=== PATIENT | female | born 1975 | race Caucasian/White ===

== ENCOUNTER 2019-03-13 09:03 | Emergency (ER) | payer MEDICARE, MEDICAID ==
--- NOTE | 2019-03-13 09:39 | EDM.PDOC ---
<Carol Puente - Last Filed: 03/13/19 10:06> ED HPI GENERAL MEDICAL PROBLEM - General Chief Complaint: Neurological Problem Stated Complaint: DIZZY AND FALLING Time Seen by Provider: 03/13/19 09:32 Source of Information: Reports: Other ([facility] staff) History Limitations: Reports: Other - History of Present Illness INITIAL COMMENTS - FREE TEXT/NARRATIVE: 44 year old female who is a resident of [facility]. Pt was brought in by staff due to having two falls yesterday and running into a wall today. Staff report that the patient was at a restaurant yesterday and stood up from the mcdonald and caught her foot and tripped falling backwards onto her butt and then hit her head on the floor. Fell a second time last evening when she got up from the toilet and stumbled forward and hit her forehead on the wall and then slid to the ground. Staff denies any seizure like activity with or after the falls. The patient was immediately able to get up and started walking again. Today, the patient got up from breakfast and was walking back to her room when she walked right into a wall. Staff report that the patient complains of feeling "dizzy" today. Gait is usually slightly unsteady, but does not have a history of falling per [facility] staff. - Related Data Allergies Allergy/AdvReac Type Severity Reaction Status Date / Time fluoride. Allergy Other Uncoded 03/13/19 09:22 Home Meds: Home Meds Alendronate Sodium 70 mg PO WEEKLY 03/13/19 [History] Calcium Carbonate [Oyster Shell Calcium] 500 mg PO TID 03/13/19 [History] Cholecalciferol (Vitamin D3) [Vitamin D3] 1,000 unit PO DAILY 03/13/19 [History] Ciprofloxacin [Ciloxan 0.3% Ophth Soln] 1 drop EYELF DAILY 03/13/19 [History] Cyanocobalamin (Vitamin B12) [Vitamin B12] 1,000 mcg PO DAILY 03/13/19 [History] Diltiazem [Dilacor XR] 240 mg PO DAILY 03/13/19 [History] Lisinopril 10 mg PO DAILY 03/13/19 [History] Montelukast [Singulair] 10 mg PO DAILY 03/13/19 [History] Multivitamins with Iron [Child Chew Iron] 1 tab PO DAILY 03/13/19 [History] Ondansetron [Zofran] 4 mg PO DAILY PRN 03/13/19 [History] Petrolatum,White [Petrolatum] 30 gm MC DAILY 03/13/19 [History] Potassium Chloride 20 meq PO DAILY 03/13/19 [History] Promethazine HCl/Codeine [Prometh-Codein 6.25-10 mg/5 ml] 5 ml PO Q8HR PRN 03/13 [History] Psyllium Husk (With Sugar) [Fiber Therapy Powder] 368 gm PO TID PRN 03/13/19 [ History] Ranitidine [Zantac] 150 mg PO DAILY 03/13/19 [History] Simethicone [Gas Relief] 1 tab PO TID PRN 03/13/19 [History] Simvastatin 5 mg PO DAILY 03/13/19 [History] Ubidecarenone [Co Q-10] 100 mg PO DAILY 03/13/19 [History] carBAMazepine [Carbamazepine] 200 mg PO BID 03/13/19 [History] hydroCHLOROthiazide [Hydrochlorothiazide] 25 mg PO DAILY 03/13/19 [History] traZODone HCl [Trazodone HCl] 50 mg PO BEDTIME #30 tablet 03/13/19 [Rx] traZODone HCl [Trazodone HCl] 100 mg PO DAILY 03/13/19 [History] ED ROS GENERAL - Review of Systems Constitutional: Reports: No Symptoms HEENT: Reports: No Symptoms Respiratory: Reports: No Symptoms Cardiovascular: Reports: No Symptoms Endocrine: Reports: No Symptoms GI/Abdominal: Reports: No Symptoms (pt has a history of constipation, but not currently an issue) : Reports: No Symptoms (pt voids per self had not offered any complaints to [facility] staff) Musculoskeletal: Reports: No Symptoms Skin: Reports: No Symptoms Neurological: Reports: Dizziness, Other (fell x 2 yesterday) Hematologic/Lymphatic: Reports: No Symptoms Immunologic: Reports: No Symptoms ED EXAM, NEURO - Physical Exam Exam Limited By: Other (cognitive disfunction-pt is a resident of 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), Abnormal Pupil ( prosthetic eye) Ears: Normal External Exam, Normal TMs Nose: Normal Inspection, No Blood Throat/Mouth: Normal Inspection, Normal Lips, Normal Oropharynx Head Exam: Atraumatic, Normocephalic Neck: Normal Inspection, Supple, Non-Tender Respiratory/Chest: No Respiratory Distress, Lungs Clear, Normal Breath Sounds, Chest Non-Tender Cardiovascular: Normal Peripheral Pulses, Regular Rate, Rhythm, No Edema, No Murmur GI/Abdominal: Normal Bowel Sounds, Soft, Non-Tender, No Distention (Female) Exam: Deferred Rectal (Female) Exam: Deferred Neurological: Alert, No Motor/Sensory Deficits Back Exam: Normal Inspection Extremities: Normal Inspection, Normal Range of Motion, No Pedal Edema Psychiatric: Anxious Skin Exam: Warm, Dry, Intact, Normal Color, No Rash Course - Vital Signs Last Recorded V/S: Last Vital Signs Temp 98.0 F 03/13/19 09:17 Pulse 86 03/13/19 09:17 Resp 16 03/13/19 09:17 BP 138/82 03/13/19 09:17 Pulse Ox 100 03/13/19 09:17 - Orders/Labs/Meds Labs: Laboratory Tests 03/13/19 03/13/19 Range/Units 10:44 10:44 WBC 6.63 (3.98-10.04) K/mm3 RBC 4.66 (3.98-5.22) M/mm3 Hgb 14.2 (11.2-15.7) gm/dl Hct 42.2 (34.1-44.9) % MCV 90.6 (79.4-94.8) fl MCH 30.5 (25.6-32.2) pg MCHC 33.6 (32.2-35.5) g/dl RDW Std Deviation 41.3 (36.4-46.3) fL Plt Count 363 (182-369) K/mm3 MPV 8.8 L (9.4-12.3) fl Neut % (Auto) 61.9 (34.0-71.1) % Lymph % (Auto) 18.4 L (19.3-51.7) % Owen % (Auto) 17.2 H (4.7-12.5) % Eos % (Auto) 0.9 (0.7-5.8) Baso % (Auto) 0.2 (0.1-1.2) % Neut # (Auto) 4.11 (1.56-6.13) K/mm3 Lymph # (Auto) 1.22 (1.18-3.74) K/mm3 Owen # (Auto) 1.14 H (0.24-0.36) K/mm3 Eos # (Auto) 0.06 (0.04-0.36) K/mm3 Baso # (Auto) 0.01 (0.01-0.08) K/mm3 Manual Slide Review Abnormal smear Sodium 136 (136-145) mEq/L Potassium 3.7 (3.5-5.1) mEq/L Chloride 101 (98-107) mEq/L Carbon Dioxide 26 (21-32) mEq/L Anion Gap 12.7 (5-15) BUN 12 (7-18) mg/dL Creatinine 0.8 (0.55-1.02) mg/dL Est Cr Clr Drug Dosing 63.79 mL/min Estimated GFR (MDRD) > 60 (>60) mL/min BUN/Creatinine Ratio 15.0 (14-18) Glucose 84 (74-106) mg/dL Calcium 9.6 (8.5-10.1) mg/dL Total Bilirubin 0.2 (0.2-1.0) mg/dL AST 21 (15-37) U/L ALT 41 (14-59) U/L Alkaline Phosphatase 79 (46-116) U/L Total Protein 7.6 (6.4-8.2) g/dl Albumin 3.9 (3.4-5.0) g/dl Globulin 3.7 gm/dL Albumin/Globulin Ratio 1.1 (1-2) Departure - Departure Disposition: Home, Self-Care 01 Clinical Impression: Dizziness, Fall - Discharge Information Prescriptions: traZODone HCl [Trazodone HCl] 50 mg PO BEDTIME #30 tablet Instructions: Dizziness, [id number] Referrals: Yaquelin Matute MD [Primary Care Provider] - Forms: ED Department Discharge Additional Instructions: Head CT was normal today, labs also were all relatively normal. It seems reasonable to cut back on dosage of her trazodone as discussed. Decreased dosage to 50 mg at at bedtime rather than the previously prescribed 100 mg. Follow-up with her regular medical provider in about 4-5 days, call clinic for appointment. Return to ED as needed if symptoms worsening in any way. <Ravindra Vinson - Last Filed: 03/17/19 08:41> ED ROS GENERAL - Review of Systems Review Of Systems: See Below ED EXAM, NEURO - Physical Exam Exam: See Below Course - Re-Assessments/Exams Free Text/Narrative Re-Assessment/Exam: 03/17/19 08:37 Initial hx and exam was done by Carol DANIELS student. I have also examined patient and interviewed [facility] staff present at time of exam. Labs came back relatively normal. She is noted to be taking 100 mg trazadone at hs presumably for sleep. That is generous dosage for her at only 48 kg. Have discussed cutting her dose down to 50 mg. Staff is agreeable with that plan. Departure - Departure Time of Disposition: 11:55 Condition: Fair
[2019-03-13] MEDS ORDERED: LORazepam 2 MG/ML SDV IVPUSH ONE (10:25)
--- NOTE | 2019-03-13 10:58 | CT ---
Head CT Technique: Multiple axial sections through the brain were obtained. Intravenous contrast was not utilized. Comparison: No prior intracranial imaging. Findings: Ventricles along with basal cisterns and sulci over the convexities are moderately prominent. Mild diminished density is noted within the periventricular white matter likely representing small vessel ischemic demyelination change. No evidence of intracranial hemorrhage. No midline shift or mass effect is seen. Bone window settings were reviewed which show no acute calvarial abnormality. Visualized mastoid sinuses show nothing acute. Visualized paranasal sinuses show nothing acute. Impression: 1. Senescent change as noted above which is more prominent than usually expected in a patient of this age. This can be seen with old trauma as well as drug abuse and some types of prescription medicines. 2. Nothing acute is appreciated on noncontrast head CT exam. Diagnostic code #2
== END 2019-03-13 12:14 | disposition home or self-care (01) ==
LOC: JD.ED 09:03
DX: R42 Dizziness and giddiness (principal); Z91.09 Other allergy status, other than to drugs and biological substances; W01.198A Fall on same level from slipping, tripping and stumbling with subsequent striking against other object, initial encounter; Y92.89 Other specified places as the place of occurrence of the external cause
CPT/HCPCS: 36415; 70450; 70450-26; 80053; 85025; 99283; 99284-25

== ENCOUNTER 2024-09-30 12:15 | Inpatient (IN) | payer MEDICARE, MEDICAID ==
[2024-09-30] MEDS ORDERED: Ondansetron 4 MG Tab.DIS PO PRN (12:23)
[2024-09-30] MEDS: Ampicillin/Sulbactam Na 3 GM in Sodium Chloride 0.9% 100 ML IV SCH (12:44)
[2024-09-30] MEDS ORDERED: Calcium Carbonate 500 MG Tab.Chew PO PRN (14:46)
[2024-09-30] MEDS ORDERED: Simethicone 80 MG Tab.Chew PO PRN (14:46)
[2024-09-30] MEDS ORDERED: guaiFENesin 100 MG/5 ML Soln 10 ML UD Cup PO PRN (15:04)
[2024-09-30] MEDS: carBAMazepine 100 MG Tab.Chew PO SCH (18:19)
[2024-09-30] MEDS: traZODone 50 MG Tab PO SCH (20:59)
[2024-09-30] MEDS: Pravastatin 20 MG Tab PO SCH (20:59)
[2024-09-30] MEDS: Famotidine 20 MG Tab PO SCH (20:59)
[2024-10-01] MEDS: Montelukast 10 MG Tab PO SCH (08:43)
[2024-10-01] MEDS: Cholecalciferol (Vitamin D3) 25 MCG Tab PO SCH (08:43)
[2024-10-01] MEDS: carBAMazepine 100 MG Tab.Chew PO SCH (08:43)
[2024-10-01] MEDS: CIPROFLOXACIN EYELF SCH (08:44)
[2024-10-01] MEDS: Enoxaparin 40 MG/0.4 ML Syringe SUBCUT SCH (09:57)
[2024-10-02] MEDS: FERROUS SULFATE 220 MG/5 ML PO SCH (11:58)
[2024-10-02] MEDS: Acetaminophen 325 MG Tab PO PRN (20:52)
[2024-10-05 08:47] LABS: HEMATOCRIT 39.2 % (37.0-47.0); HEMOGLOBIN 12.4 gm/dl (12.0-16.0); MEAN CORPUSCULAR HEMOGLOBIN 28.8 pg (28.0-32.0); MEAN CORPUSCULAR HGB CONC 31.6 g/dl (32.0-36.0); MEAN CORPUSCULAR VOLUME 91.2 fl (83.0-99.0); MEAN PLATELET VOLUME 9.1 fl (9.4-12.3); WHITE BLOOD CELL COUNT,WBC 8.65 K/mm3 (3.9-11.3)
[2024-10-05 08:53] LABS: PLATELET COUNT,PLT 408 K/mm3 (150-400)
[2024-10-05 09:23] LABS: A/G RATIO 0.7 (1-2); ANION GAP 11.6 (5-15); BILIRUBIN TOTAL 0.2 mg/dL (0.2-1.0); BUN/CREATININE RATIO 17.1 (14-18); C-REACTIVE PROTEIN 0.27 mg/dL (<0.30); CALCIUM 9.3 mg/dL (8.5-10.1); CREATININE 0.7 mg/dL (0.55-1.02); EST CRCL DRUG DOSING (CG) 61.48 mL/min; POTASSIUM,K 3.6 mEq/L (3.5-5.1); PROTEIN TOTAL,TP 7.5 g/dl (6.4-8.2)
[2024-10-06] MEDS: LORazepam 2 MG/ML SDV IVPUSH PRN (10:19)
[2024-10-06] MEDS: Acetaminophen 325 MG Tab PO SCH (18:02)
[2024-10-12 09:06] LABS: HEMATOCRIT 35.8 % (37.0-47.0); HEMOGLOBIN 11.7 gm/dl (12.0-16.0); MEAN CORPUSCULAR HEMOGLOBIN 29.1 pg (28.0-32.0); MEAN CORPUSCULAR HGB CONC 32.7 g/dl (32.0-36.0); MEAN CORPUSCULAR VOLUME 89.1 fl (83.0-99.0); MEAN PLATELET VOLUME 9.2 fl (9.4-12.3); PLATELET COUNT,PLT 367 K/mm3 (150-400); RED BLOOD CELL COUNT 4.02 M/mm3 (4.10-5.30); WHITE BLOOD CELL COUNT,WBC 8.27 K/mm3 (3.9-11.3)
[2024-10-12 09:32] LABS: A/G RATIO 0.8 (1-2); ANION GAP 11.9 (5-15); BILIRUBIN TOTAL 0.2 mg/dL (0.2-1.0); BUN/CREATININE RATIO 18.3 (14-18); C-REACTIVE PROTEIN 0.35 mg/dL (<0.30); CALCIUM 8.9 mg/dL (8.5-10.1); CREATININE 0.6 mg/dL (0.55-1.02); EST CRCL DRUG DOSING (CG) 72.61 mL/min; POTASSIUM,K 3.9 mEq/L (3.5-5.1); PROTEIN TOTAL,TP 6.9 g/dl (6.4-8.2)
[2024-10-14] MEDS: Sennosides 8.6 MG Tab PO PRN (11:40)
[2024-10-17] MEDS: Polyethylene Glycol 3350 Powder 17 GM Packet PO SCH (13:13)
[2024-10-19 05:25] LABS: BASOPHILS ABSOLUTE AUTO 0.1 K/mm3 (0.0-0.2); BASOPHILS PERCENT AUTO 0.6 % (0.0-1.0); EOSINOPHILS ABSOLUTE AUTO 0.4 K/mm3 (0.0-0.4); EOSINOPHILS PERCENT AUTO 4.2 % (0.0-6.0); HEMOGLOBIN 10.9 gm/dl (12.0-16.0); IMMATURE GRAN PERCENT AUTO 2.3 % (0.0-0.4); LYMPHOCYTES ABSOLUTE AUTO 1.9 K/mm3 (1.0-4.8); LYMPHOCYTES PERCENT AUTO 21.4 % (24.0-44.0); MEAN CORPUSCULAR VOLUME 90.9 fl (83.0-99.0); MEAN PLATELET VOLUME 9.2 fl (9.4-12.3); MONOCYTES ABSOLUTE AUTO 1.1 K/mm3 (0.0-0.8); MONOCYTES PERCENT AUTO 12.2 % (0.0-8.0); NEUTROPHILS ABSOLUTE AUTO 5.2 K/mm3 (1.8-7.7); NEUTROPHILS PERCENT AUTO 59.3 % (41.0-71.0); PLATELET COUNT,PLT 304 K/mm3 (150-400); RED BLOOD CELL COUNT 3.63 M/mm3 (4.10-5.30); WHITE BLOOD CELL COUNT,WBC 8.77 K/mm3 (3.9-11.3)
[2024-10-19 05:45] LABS: A/G RATIO 0.7 (1-2); ALBUMIN 2.6 g/dl (3.4-5.0); BILIRUBIN TOTAL 0.1 mg/dL (0.2-1.0); C-REACTIVE PROTEIN 0.18 mg/dL (<0.30); CALCIUM 8.8 mg/dL (8.5-10.1); CREATININE 0.7 mg/dL (0.55-1.02); EST CRCL DRUG DOSING (CG) 61.21 mL/min; PROTEIN TOTAL,TP 6.2 g/dl (6.4-8.2)
[2024-10-19] MEDS ORDERED: Polyethylene Glycol 3350 Powder 17 GM Packet PO PRN (12:07)
[2024-10-23] MEDS ORDERED: Propofol 200 MG/20 ML SDV ONE (06:00)
[2024-10-23] MEDS: Gadobenate Dimeglumine 529 MG/ML 15 ML SDV IVPUSH ONE (06:52)
[2024-10-23] MEDS: Sodium Chloride 0.9% 10 ML Syringe FLUSH SCH (06:52)
[2024-10-23] MEDS ORDERED: Ondansetron 4 MG/2 ML SDV IVPUSH PRN (07:24)
[2024-10-26 05:45] LABS: BASOPHILS PERCENT AUTO 0.4 % (0.0-1.0); EOSINOPHILS ABSOLUTE AUTO 0.3 K/mm3 (0.0-0.4); EOSINOPHILS PERCENT AUTO 3.8 % (0.0-6.0); HEMATOCRIT 34.7 % (37.0-47.0); HEMOGLOBIN 11.2 gm/dl (12.0-16.0); IMMATURE GRAN ABSOLUTE AUTO 0.17 K/mm3 (0.00-0.05); IMMATURE GRAN PERCENT AUTO 1.9 % (0.0-0.4); LYMPHOCYTES ABSOLUTE AUTO 1.6 K/mm3 (1.0-4.8); MEAN CORPUSCULAR HEMOGLOBIN 29.9 pg (28.0-32.0); MEAN CORPUSCULAR HGB CONC 32.3 g/dl (32.0-36.0); MEAN CORPUSCULAR VOLUME 92.8 fl (83.0-99.0); MEAN PLATELET VOLUME 9.7 fl (9.4-12.3); MONOCYTES ABSOLUTE AUTO 0.9 K/mm3 (0.0-0.8); MONOCYTES PERCENT AUTO 10.5 % (0.0-8.0); NEUTROPHILS ABSOLUTE AUTO 5.8 K/mm3 (1.8-7.7); NEUTROPHILS PERCENT AUTO 65.4 % (41.0-71.0); PLATELET COUNT,PLT 330 K/mm3 (150-400); RED BLOOD CELL COUNT 3.74 M/mm3 (4.10-5.30); WHITE BLOOD CELL COUNT,WBC 8.91 K/mm3 (3.9-11.3)
[2024-10-26 05:53] LABS: A/G RATIO 0.7 (1-2); ALBUMIN 2.6 g/dl (3.4-5.0); ANION GAP 11.8 (5-15); BILIRUBIN TOTAL 0.2 mg/dL (0.2-1.0); BUN/CREATININE RATIO 21.4 (14-18); C-REACTIVE PROTEIN 0.26 mg/dL (<0.30); CALCIUM 8.8 mg/dL (8.5-10.1); CREATININE 0.7 mg/dL (0.55-1.02); EST CRCL DRUG DOSING (CG) 60.86 mL/min; POTASSIUM,K 3.8 mEq/L (3.5-5.1); PROTEIN TOTAL,TP 6.2 g/dl (6.4-8.2)
[2024-10-26] MEDS: LORazepam 2 MG/ML SDV IVPUSH ONE (08:17)
[2024-10-27] MEDS: Ertapenem 1 GM in Sodium Chloride 0.9% 50 ML IV SCH (11:54)
[2024-10-28] MEDS: Acetaminophen 325 MG Tab PO SCH (21:04)
[2024-10-29] MEDS: Acetaminophen 325 MG Tab PO SCH (20:24)
[2024-11-02 05:36] LABS: BASOPHILS ABSOLUTE AUTO 0.1 K/mm3 (0.0-0.2); BASOPHILS PERCENT AUTO 0.8 % (0.0-1.0); EOSINOPHILS ABSOLUTE AUTO 0.5 K/mm3 (0.0-0.4); EOSINOPHILS PERCENT AUTO 7.4 % (0.0-6.0); HEMATOCRIT 36.6 % (37.0-47.0); IMMATURE GRAN ABSOLUTE AUTO 0.19 K/mm3 (0.00-0.05); IMMATURE GRAN PERCENT AUTO 2.6 % (0.0-0.4); LYMPHOCYTES ABSOLUTE AUTO 1.8 K/mm3 (1.0-4.8); LYMPHOCYTES PERCENT AUTO 24.5 % (24.0-44.0); MEAN CORPUSCULAR HEMOGLOBIN 30.2 pg (28.0-32.0); MEAN CORPUSCULAR HGB CONC 32.8 g/dl (32.0-36.0); MEAN PLATELET VOLUME 9.2 fl (9.4-12.3); MONOCYTES PERCENT AUTO 14.1 % (0.0-8.0); NEUTROPHILS ABSOLUTE AUTO 3.7 K/mm3 (1.8-7.7); NEUTROPHILS PERCENT AUTO 50.6 % (41.0-71.0); PLATELET COUNT,PLT 341 K/mm3 (150-400); RED BLOOD CELL COUNT 3.98 M/mm3 (4.10-5.30); WHITE BLOOD CELL COUNT,WBC 7.31 K/mm3 (3.9-11.3)
[2024-11-02 06:35] LABS: A/G RATIO 0.8 (1-2); ALBUMIN 2.8 g/dl (3.4-5.0); BILIRUBIN TOTAL 0.2 mg/dL (0.2-1.0); BUN/CREATININE RATIO 33.3 (14-18); C-REACTIVE PROTEIN 0.2 mg/dL (<0.30); CALCIUM 8.9 mg/dL (8.5-10.1); CREATININE 0.6 mg/dL (0.55-1.02); EST CRCL DRUG DOSING (CG) 72.29 mL/min; PROTEIN TOTAL,TP 6.5 g/dl (6.4-8.2)
== END 2024-11-03 12:55 | disposition other institution (70) | DRG 540 ==
LOC: UNDOADMIN 12:15 → JD.MS 12:15 → UNDOADMIN 12:16 → JD.MS 12:16
PROVIDERS: ADMIT Internal Medicine; ATTEND Student in an Organized Health Care Education/Training Program
DX: M86.08 Acute hematogenous osteomyelitis, other sites (principal); E46 Unspecified protein-calorie malnutrition; E87.1 Hypo-osmolality and hyponatremia; Z68.1 Body mass index [BMI] 19.9 or less, adult; H54.7 Unspecified visual loss; E78.00 Pure hypercholesterolemia, unspecified; I10 Essential (primary) hypertension; J45.909 Unspecified asthma, uncomplicated; K21.9 Gastro-esophageal reflux disease without esophagitis; M81.0 Age-related osteoporosis without current pathological fracture; R73.03 Prediabetes; D64.9 Anemia, unspecified; F41.9 Anxiety disorder, unspecified; F32.A Depression, unspecified; K59.09 Other constipation; R62.50 Unspecified lack of expected normal physiological development in childhood; D50.9 Iron deficiency anemia, unspecified; K08.9 Disorder of teeth and supporting structures, unspecified; Z86.16 Personal history of COVID-19; Z88.8 Allergy status to other drugs, medicaments and biological substances; Z90.49 Acquired absence of other specified parts of digestive tract; Z79.899 Other long term (current) drug therapy; Z98.890 Other specified postprocedural states
CPT/HCPCS: 01922; 36415; 70543; 70543-26; 80053; 85025; 85027; 86140; 97116-GP; 97161-GP; 97162-GP; 97166-GO; 97535-GO; 99308; 99309; 99316; A9270-GY; A9577; J0295; J1335; J1650; J2060; J2704